=== PATIENT | male | born 1980 | race Hispanic/Latino ===

== ENCOUNTER 2018-07-28 10:59 | Emergency (ER) | payer OTHER ==
[2018-07-28 11:02] VITALS: BMI 25.0
[2018-07-28] MEDS ORDERED: Sodium Chloride 0.9% 1,000 ML IV ONE (11:05)
--- NOTE | 2018-07-28 11:41 | ED PDOC ---
Arrival/HPI - General Chief Complaint: Upper Extremity Problem/Injury Time Seen by Provider: 07/28/18 11:02 Historian: Patient - History of Present Illness Narrative History of Present Illness (Text): 07/28/18 11:38 A 37 year old male, whose past medical history include GERD, hyperlipidemia, previously dislocated left shoulder, presents tot ed with a complaint of left shoulder pain. He notes it started about an hour ago, and that it feels like the previous dislocation. He reports that it occurred after he reached over his seat belt on the left and noted that his left shoulder popped out. He denies any fall/ trauma/ MVA, loss of sensation in left arm, numbness, tingling, weakness, fevers, chills, headache, dizziness, chest pain, shortness of breath, dyspnea on exertion, cough, abdominal pain, nausea, vomiting, diarrhea, back pain, neck pain, urinary/bowel changes, or any other complaint. Time/Duration: Other (Today) Symptom Onset: Sudden Symptom Course: Unchanged Activities at Onset: Rest, Light Context: Other (Car) Past Medical History - Provider Review Nursing Documentation Reviewed: Yes - Psychiatric Hx Substance Use: No - Surgical History Hx Orthopedic Surgery: Yes Other/Comment: L shoulder. R knee. R wrist. R arm - Anesthesia Hx Anesthesia Reactions: No Hx Malignant Hyperthermia: No Family/Social History - Physician Review Nursing Documentation Reviewed: Yes Family/Social History: No Known Family HX Smoking Status: Never Smoked Hx Alcohol Use: Yes Frequency of alcohol use: Socially Hx Substance Use: No Allergies/Home Meds Allergies/Adverse Reactions: Allergies No Known Allergies Allergy (Verified 07/29/18 08:23) Review of Systems - Physician Review All systems were reviewed & negative as marked: Yes - Review of Systems Constitutional: absent: Fevers Eyes: absent: Vision Changes ENT: absent: Hearing Changes, TMJ Pain Respiratory: absent: SOB, Cough Cardiovascular: absent: Chest Pain, CRAWLEY Gastrointestinal: absent: Abdominal Pain, Stool Changes, Diarrhea, Nausea, Vomiting Genitourinary Male: absent: Urinary Output Changes Musculoskeletal: Other (Dislocated left shoulder). absent: Back Pain, Neck Pain Neurological: absent: Headache, Dizziness Physical Exam Vital Signs Reviewed: Yes Vital Signs Temp Pulse Resp BP Pulse Ox 07/28/18 11:00 97.5 F L 93 H 20 170/119 H 96 Temperature: Afebrile Blood Pressure: Hypertensive Pulse: Tachycardic Respiratory Rate: Normal Appearance: Positive for: Well-Appearing, Non-Toxic, Comfortable Pain Distress: Mild Mental Status: Positive for: Alert and Oriented X 3 - Systems Exam Head: Present: Atraumatic, Normocephalic Pupils: Present: PERRL Extroacular Muscles: Present: EOMI Conjunctiva: Present: Normal Ears: Present: Normal, NORMAL TM Mouth: Present: Moist Mucous Membranes Pharnyx: Present: Normal. No: ERYTHEMA, EXUDATE, TONSILS ENLARGED, Strider Nose (External): Present: Atraumatic Nose (Internal): Present: Normal Inspection. No: Septal Hematoma Neck: Present: Normal Range of Motion. No: Meningeal Signs, MIDLINE TENDERNESS Respiratory/Chest: Present: Clear to Auscultation, Good Air Exchange. No: Respiratory Distress, Accessory Muscle Use Cardiovascular: Present: Regular Rate and Rhythm, Normal S1, S2. No: Murmurs Abdomen: No: Tenderness, Distention, Peritoneal Signs Back: Present: Normal Inspection. 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 Denies any pain in elbow, wrist, or fingers. No snuff box pain. Good radial pulse b/l). No: Cyanosis, Edema Lower Extremity: Present: Normal Inspection. No: Edema, CALF TENDERNESS Neurological: Present: GCS=15, CN II-XII Intact, Speech Normal Skin: Present: Warm, Dry, Normal Color. No: Rashes Psychiatric: Present: Alert, Oriented x 3, Normal Insight, Normal Concentration Medical Decision Making ED Course and Treatment: 07/28/18 11:43 Impression: A 37 year old male presents to the ED with a complaint of left shoulder pain that feels similar to previous dislocation. N/V intact. No hx of trauma or signs of trauma on exam. Differential Diagnosis included but are not limited to: anterior dislocation vs. fracture of shoulder Plan: -- Left Shoulder X- Ray -- Labs -- Toradol and IV Fluids -- Reassess and disposition Prior Visits: Notes and results from previous visits were reviewed. Progress Notes: PROCEDURE: Radiographs of the left shoulder Dictator : Patricia Yost MD Report Date : 07/28/2018 11:51:06 IMPRESSION: Anterior inferior glenohumeral dislocation. No evidence for acute displaced fracture. 07/28/18 12:53 PROCEDURE: REDUCTION Performed by the emergency provider Consent: Informed consent, after discussion of the risks, benefits, and alternatives to the procedure, was obtained. Timeout: A timeout to verify the correct patient, procedure, and site was performed immediately prior to the procedure. Indication: Left shoulder dislocation Location: Left Shoulder Sedation: fentaynl / Versed (mild effect) followed by etomidate (good concious sedation). See MAR for details. Pre-procedure neurovascular status: Distal neurovascular status intact. Technique: Monster. Post-procedure neurovascular status: Distal neurovascular status remains intact. Confirmation: Post-reduction films confirm reduction. See post-procedure X-Ray interpretation. Post-procedure: Patient tolerated the procedure well with no immediate complications. The reduction site was immobilized with a shoulder immobilzer. PROCEDURE: Radiographs of the Left Shoulder Dictator : Cole Marin MD Report Date : 07/28/2018 12:49:43 IMPRESSION: Successful reduction of left shoulder dislocation 07/28/18 14:02 remains n/v intact in distal extremity pt in NAD, ambulating well clear for d/c home with return indications and follow up w/ ortho and PMD, pt agreeable to plan. 07/28/18 14:10 On re-evaluation, patient feels better and is in no acute distress. I have discussed the results and plan with the patient, who expresses understanding. Patient in agreement with plan to be discharged home. Patient is stable for discharge. Patient was instructed to follow up with physician or return if symptoms worsen or new concerning symptoms arise. 07/29/18 10:27 - Lab Interpretations I have reviewed the lab results: Yes - RAD Interpretation Radiology Orders: 07/28/18 11:03 SHOULDER LEFT [RAD] Stat - Medication Orders Current Medication Orders: Sodium Chloride (Sodium Chloride 0.9%) 1,000 mls @ 250 mls/hr IV .Q4H ONE Stop: 07/28/18 15:04 Last Admin: 07/28/18 11:27 Dose: 250 mls/hr eMAR Start Stop Document 07/28/18 11:27 MA (Rec: 07/28/18 11:28 MA [id number]) Intravenous Solution Start Date 07/28/18 Start Time 11:28 Discontinued Medications Ketorolac Tromethamine (Toradol) 15 mg IVP STAT STA Stop: 07/28/18 11:12 Last Admin: 07/28/18 11:25 Dose: 15 mg MAR Pain Assessment Document 07/28/18 11:25 MA (Rec: 07/28/18 11:26 MA [id number]) Pain Reassessment Is this a pain reassessment? Yes Sleep Is patient sleeping during reassessment? No Presence of Pain Presence of Pain Yes Pain Scale Used Protocol: PSCALES Pain Scale Used Numeric Location Left, Right or Bilateral Left Description Description Constant Intensity of Pain at present 10 Pain Behavior Grasping Site Rubbing Site Restlessness Facial Grimacing Aggravating Factors Changing Position IVP Administration Document 07/28/18 11:25 MA (Rec: 07/28/18 11:26 MA [id number]) Charges for Administration # of IVP Administrations 1 ED Procedural Sedation - Pre Anesthesia Assessment Chief Complaint: Upper Extremity Problem/Injury Last Known Meal: last night, 12+ hours prior Past Medical History: Medications Reviewed, Allergies Reviewed, Record Review Previous Surgies: Reviewed Family History/Social History: Reviewed - Physical Exam/Review of Systems Vital Signs Reviewed: Yes Cardiovascular: Regular Rate and Rhythm. denies: Murmurs Respiratory/Chest: Clear to Auscultation, Good Air Exchange Neurological: GCS=15, CN II-XII Intact, Speech Normal Abdomen: denies: Distention Mental Status: Alert and Oriented X 3 - Pre-Procedure Airway Assessment ASA Criteria: 1 - Healthy, normal. 2 - Mild systemic disease (No functional limitations, mildline obesity, DM withot complications, Hypertention). 3 - Severe systemic disease (Some functional limitation, stable angina, morbid obesity, controlled COPD/Asthma/CHF). 4 - Sever systemic disease constant threat to life (Unstable angina, active symptoms of COPD/Asthma, CHF/Hypertension. 5 - Moribund ASA Clarification: ASA I Mallampati (airway): Class II Nursing ED Procedural Sedation: ER Moderate Sedation Start: 07/28/18 12:40 Freq: Status: Active Protocol: Document 07/28/18 12:18 MA (Rec: 07/28/18 12:49 MA [id number]) Mod Sedation Time Out Process Time Out Process Patient identification (MR# and name Yes from ID Band) Procedure verified Yes Consent read aloud and agreed upon Yes Correct Site/Side marked and visibe to Yes team after prepping and draping (unless exempt) Implants, special equipment and x-rays Yes available Prophylactic antibiotic given (if Not Applicable applicable) Correct position Yes Correct Team Yes All team members are in agreement Yes Pre-Procedure Mod Sedation Pre-Procedure Checklist Patient's identity verified by Patient stating name Patient stating fabrizio Pre Procedure Checklist BP monitor Signed consent Ambu bag Patient IV Patient ID Oxygen Airway Code Cart End Tidal CO2 Suction set up Pre Anesthesia Assessment Chief Complaint Upper Extremity Problem/Injury Past Medical History Medications Reviewed Allergies Reviewed Record Review Previous Surgies Reviewed Family History/Social History Reviewed Moderate Sedation VS & Pain Ax Level of Consciousness Level of Consciousness 1 = Alert Temperature Temperature (97.6 F-99.6 F) 98.2 F Pulse Pulse Rate (60-90 beats/min) 88 Respirations Respiratory Rate (12-24 breaths/min) 18 Oxygen Delivery Method Non-Rebreather SPO2 (95-100) 96 O2 LPM (L/min) 15 End Tidal CO2 38 Blood Pressure Blood Pressure (100/60-150/90 mm Hg) 137/90 Cardiac Rhythm Cardiac Rhythm Sinus Pain Pain Intensity 10 Pain Scale Used Numeric Intra-Procedure Vital Signs Vital Signs and Pain Assessment Time 12:33 Blood Pressure (100/60-150/90 mm Hg) 155/100 Pulse Rate (60-90 beats/min) 105 Respiratory Rate (12-24 breaths/min) 18 End Tidal CO2 38 Level of Consciousness 5 = Unresponsive to Physical/ Verbal Stimuli Pain Intensity 0 Cardiac Rhythm Sinus Intra-Procedure Vital Signs #2 Vital Signs and Pain Assessment Time 12:35 Blood Pressure (100/60-150/90 mm Hg) 163/108 Pulse Rate (60-90 beats/min) 105 Respiratory Rate (12-24 breaths/min) 18 End Tidal CO2 38 Level of Consciousness 1 = Alert Pain Intensity 0 Cardiac Rhythm sinus Intra-Procedure Vital Signs #3 Vital Signs and Pain Assessment Time 12:45 Blood Pressure (100/60-150/90 mm Hg) 139/100 Pulse Rate (60-90 beats/min) 109 Respiratory Rate (12-24 breaths/min) 18 End Tidal CO2 38 Level of Consciousness 1 = Alert Pain Intensity 0 Cardiac Rhythm sinus Intra-Procedure Vital Signs #4 Vital Signs and Pain Assessment Time 12:50 Blood Pressure (100/60-150/90 mm Hg) 162/89 Pulse Rate (60-90 beats/min) 88 Respiratory Rate (12-24 breaths/min) 18 End Tidal CO2 38 Level of Consciousness 1 = Alert Pain Intensity 0 Cardiac Rhythm sinus REACT Score REACT Score Respirations Spontaneous Respirations > 10 Without Airway Support Energy Moves Legs: Can Keep Head Up Alertness Awake Seldom Dozes Circulation Systolic BP At PreOp or Above Full Pulse Temperature Temperature is >96 Degrees Farenheit Edit Result 07/28/18 12:18 MA (Rec: 07/28/18 14:25 MA [id number]) Discharge Checklist Written MD order for Discharge Yes Vital signs assessed and are consistent Yes with pre-procedure reading Minimal nausea, vomiting, and dizziness Yes Ambulates to pre-procedural level Yes Alert and oriented to pre-procedural Yes level Responsible adult escort present Yes DISCHARGE INSTRUCTIONS GIVEN: Yes Created 07/28/18 12:40 MA (Rec: 07/28/18 12:40 MA [id number]) - Intra-Procedure (Medications) Medications Given: Discontinued Medications Fentanyl (Fentanyl) 150 mcg IVP ONCE ONE Stop: 07/28/18 12:23 Last Admin: 07/28/18 12:18 Dose: 150 mcg MAR Pain Assessment Document 07/28/18 12:18 SRE (Rec: 07/28/18 13:11 SRE [id number]) Pain Reassessment Is this a pain reassessment? Yes Sleep Is patient sleeping during reassessment? No Presence of Pain Presence of Pain Yes Pain Scale Used Protocol: PSCALES Pain Scale Used Numeric Location Left, Right or Bilateral Left Pain Location Body Site Shoulder Description Description Sharp IVP Administration Document 07/28/18 12:18 SRE (Rec: 07/28/18 13:11 SRE [id number]) Charges for Administration # of IVP Administrations 1 Sodium Chloride (Sodium Chloride 0.9%) 1,000 mls @ 250 mls/hr IV .Q4H ONE Stop: 07/28/18 15:04 Last Admin: 07/28/18 11:27 Dose: 250 mls/hr eMAR Start Stop Document 07/28/18 11:27 MA (Rec: 07/28/18 11:28 MA [id number]) Intravenous Solution Start Date 07/28/18 Start Time 11:28 Ketorolac Tromethamine (Toradol) 15 mg IVP STAT STA Stop: 07/28/18 11:12 Last Admin: 07/28/18 11:25 Dose: 15 mg MAR Pain Assessment Document 07/28/18 11:25 MA (Rec: 07/28/18 11:26 MA [id number]) Pain Reassessment Is this a pain reassessment? Yes Sleep Is patient sleeping during reassessment? No Presence of Pain Presence of Pain Yes Pain Scale Used Protocol: PSCALES Pain Scale Used Numeric Location Left, Right or Bilateral Left Description Description Constant Intensity of Pain at present 10 Pain Behavior Grasping Site Rubbing Site Restlessness Facial Grimacing Aggravating Factors Changing Position IVP Administration Document 07/28/18 11:25 MA (Rec: 07/28/18 11:26 MA [id number]) Charges for Administration # of IVP Administrations 1 Midazolam HCl (Versed Inj) 4 mg IVP STAT STA Stop: 07/28/18 12:19 Last Admin: 07/28/18 12:22 Dose: 4 mg IVP Administration Document 07/28/18 12:22 SRE (Rec: 07/28/18 13:11 SRE [id number]) Charges for Administration # of IVP Administrations 1 Physician Pushed Medication: No - Post-Procedure Post Procedure Note: Pt tolerated procedure well, good o2 sat pre and post procedure, good respiratoy rate. Procedures - Time-Out Type of Procedure: shoulder reduction Site of Procedure: L shoulder Correct Patient (with visual ID + MR# on ID Band): Yes Correct Procedure: Yes Correct Site Marked: Yes X-Ray Marked: Yes Medication Reconciliation / Bloodwork / Allergies Checked: Yes Physician Name: Eric Guerin - Joint Reduction Joint Reduction Site: shoulder (L) Conscious Sedation: Yes Reduction Attempts: 2 Pre-Procedure NV Exam: Yes Post Joint Reduction Film: joint reduced - Scribe Statement The provider has reviewed the documentation as recorded by the Dwight Craven Provider Scribe Attestation: All medical record entries made by the Scribe were at my direction and personally dictated by me. I have reviewed the chart and agree that the record accurately reflects my personal performance of the history, physical exam, medical decision making, and the department course for this patient. I have also personally directed, reviewed, and agree with the discharge instructions and disposition. Disposition/Present on Arrival - Present on Arrival Any Indicators Present on Arrival: No History of DVT/PE: No History of Uncontrolled Diabetes: No Urinary Catheter: No History of Decub. Ulcer: No History Surgical Site Infection Following: None - Disposition Have Diagnosis and Disposition been Completed?: Yes Diagnosis: Shoulder dislocation Disposition: HOME/ ROUTINE Disposition Time: 14:04 Condition: STABLE Discharge Instructions (ExitCare): Shoulder Instability, Shoulder Dislocation (DC) Additional Instructions: SUPA MARROQUIN, thank you for letting us take care of you today. Your provider was Eric Guerin and you were treated for DISLOCATED SHOULDER. The emergency medical care you received today was directed at your acute symptoms. If you were prescribed any medication, please fill it and take as directed. It may take several days for your symptoms to resolve. Return to the Emergency Department if your symptoms worsen, do not improve, or if you have any other problems. Please contact your doctor or call one of the physicians/clinics you have been referred to that are listed on the Patient Visit Information form that is included in your discharge packet. Bring any paperwork you were given at discharge with you along with any medications you are taking to your follow up visit. Our treatment cannot replace ongoing medical care by a primary care provider outside of the emergency department. Thank you for allowing the [facility] team to be part of your care today. If you had an X-Ray or CT scan: A Radiologist will review the ED reading if any change in treatment is needed we will contact you. If you had a blood, urine, or wound culture: It will take several days for the results, if any change in treatment is needed we will contact you. If you had an STI test: It will take 48 hours for the results. Please call after 1 week if you have not heard back. Referrals: Rell Mercado MD [Staff Provider] - Follow up with primary Cherise Thomas MD [Medical Doctor] - Follow up with primary [facility] [Outside] - Follow up with primary [facility] [Outside] - Follow up with primary [facility] [Outside] - Follow up with primary Forms: [facility] (Italian)
[2018-07-28 11:51] LABS: EOS # 0.1 (0.0-0.7); EOS % 0.8 % (1.5-5.0); LYMPH % 28.6 % (22.0-35.0); MEAN CELL VOLUME 92.8 fl (80.0-105.0); MEAN CORPUSCULAR HEMOGLOBIN 32.4 pg (25.0-35.0); MEAN CORPUSCULAR HGB CONC 34.9 g/dl (31.0-37.0); MEAN PLATELET VOLUME 9.8 fl (7.0-11.0); MONO # 0.8 (0.1-0.6); MONO % 10.7 % (1.0-6.0); RBC 5.56 10^6/uL (3.5-6.1); RED CELL DISTRIBUTION WIDTH 12.4 % (11.5-14.5); WHITE BLOOD COUNT 7.1 10^3/uL (4.5-11.0)
[2018-07-28 11:54] LABS: ALB/GLOB RATIO 1.3 (1.1-1.8); ALBUMIN 4.6 g/dL (3.0-4.8); ALT/SGPT 39 U/L (7-56); AST/SGOT 36 U/L (17-59); BLOOD UREA NITROGEN 14 mg/dL (7-21); GFR NON-AFRICAN AMERICAN > 60
[2018-07-28 11:55] LABS: INR 0.99; PARTIAL THROMBOPLASTIN TIME 31.8 Seconds (26.9-38.3); PROTHROMBIN TIME 11.2 SECONDS (9.4-12.5)
--- NOTE | 2018-07-28 11:55 | RAD ---
Date of service: 07/28/2018 PROCEDURE: Radiographs of the left shoulder HISTORY: ?dislocation COMPARISON: No prior. TECHNIQUE: 2 views were obtained. FINDINGS: BONES: Bone alignment and mineralization are normal. There is no acute displaced fracture or bone destruction. JOINTS: Anterior inferior glenohumeral dislocation. The acromioclavicular joint is normal. SOFT TISSUES: Normal. OTHER FINDINGS: None. IMPRESSION: Anterior inferior glenohumeral dislocation. No evidence for acute displaced fracture.
[2018-07-28] MEDS ORDERED: Midazolam 2 MG/2 ML VIAL IVP ONE ×2 (11:57→12:05)
[2018-07-28] MEDS ORDERED: Midazolam 2 MG/2 ML VIAL IVP STA (12:18)
[2018-07-28] MEDS ORDERED: Etomidate 20 mg/10ml Inj IV ONE (12:27)
[2018-07-28 12:49] VITALS: RESP 18; O2SAT 96
--- NOTE | 2018-07-28 12:53 | RAD ---
Date of service: 07/28/2018 PROCEDURE: Radiographs of the Left Shoulder HISTORY: post reduction COMPARISON: No prior. TECHNIQUE: One views obtained. FINDINGS: BONES: Normal. No fracture. JOINTS: Successful reduction of left shoulder dislocation SOFT TISSUES: Normal. OTHER FINDINGS: None. IMPRESSION: Successful reduction of left shoulder dislocation
[2018-07-28 14:23] VITALS: BP 140/88; PULSE 73; TEMP 98.6
== END 2018-07-28 14:25 | disposition home or self-care (01) ==
LOC: MERGE 10:59 → ED 10:59
DX: S43.005A Unspecified dislocation of left shoulder joint, initial encounter (principal); X50.9XXA Other and unspecified overexertion or strenuous movements or postures, initial encounter
CPT/HCPCS: 23665; 73030; 80053; 85025; 85610; 85730; 86850; 86900; 96374; 96375; 99285; J1885; J2250; J3010; J7030